=== PATIENT | female | born 1985 | race Caucasian/White ===

== ENCOUNTER 2016-08-24 05:04 | Day surgery (SDC) | payer BC ==
[2016-08-23 14:24] VITALS: BMI 26.9
[2016-08-24] MEDS ORDERED: LIDOCAINE HCL 2% (20ML MULTI-DOSE VIAL) NR ONE (13:49)
[2016-08-24] MEDS ORDERED: DEXAMETHASONE SOD PHOSPHATE 4 MG/1 ML VIAL ONE (13:49)
[2016-08-24] MEDS ORDERED: ROCURONIUM BROMIDE 50 MG/5 ML VIAL ONE (13:50)
[2016-08-24] MEDS ORDERED: PROPOFOL 20 ML ONE (13:50)
[2016-08-24] MEDS ORDERED: MIDAZOLAM HCL 2 MG/2 ML SINGLE DOSE VIAL ONE (13:50)
--- NOTE | 2016-08-24 14:20 | HP ---
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: No: Alzheimer's, CVA, Dementia, Migraine, Multiple Sclerosis, Peripheral Neuropathy, Parkinson's, Seizure, Syncope, TIA, Vertigo, Other Cardiovascular: Yes: Deep Vein Thrombosis Pulmonary: Yes: Pulmonary Embolus (on OCP) Gastrointestinal: No: Ascites, Cancer, Constipation, Crohn's Disease, Diverticulitis, Diverticulosis, Esophageal Varices, Gastritis, GERD, GI Bleed, Hemorrhoids, Hiatal Hernia, Inflamatory Bowel Disease, Irritable Bowel Disease, Pancreatitis, Peptic Ulcer Disease, Ulcerative Colitis, Other Hepatobiliary: No: Cirrhosis, Cholelithiasis, Cholecystitis, Choledocholithiasis , Hepatitis A, Hepatitis B, Hepatitis C, Other Renal/: No: Renal Failure, Renal Inusuff, BPH, Cancer, Hematuria, Hemodialysis , Neurogenic Bladder, Renal Calculi, UTI, Other Reproductive: No: Ectopic , Endometriosis, Fibroids, PID, Polycystic Ovary Syndrome, Postmenopausal, Other ...Para: 2 Heme/Onc: Yes: Other (Hx/o PE as above) Infectious Disease: No: AIDS, C-Diff, Herpes Zoster, HIV, MRSA, STD's, Tuberculosis, VREF, Other Psych: No: Addictions, Anxiety, Bipolar, Depression, Panic, Psychosis, Schizophrenia, Other Musculoskeletal: No: Bursitis, Chronic low back pain, Hemiparesis, Hemiplegia, Osteoarthritis, Paraplegia, Other Rheumatology: No: Fibromyalgia, Gout, Lupus, Rheumatoid Arthritis, Sarcoidosis, Vasculitis, Other ENT: No: Allergic Rhinitis, Sinusitis, Other Endocrine: No: Hilario's Disease, Aravind's Disease, Diabetes Insipidus, Diabetes Mellitus, Hyperparathyroidism, Hyperthyroidism, Hypothyroidism, Osteopenia, SIADH, Other - Past Surgical History Past Surgical History: Yes: None Hx Myomectomy: No Hx Transabdominal Cerclage: No Additional Surgical History: D&C - Smoking History Smoking history: Never smoked Have you smoked in the past 12 months: No Aproximately how many cigarettes per day: 0 - Alcohol/Substance Use Hx Alcohol Use: Yes (SOCIAL) History of Substance Use: reports: None - Social History Usual Living Arrangement: Yes: With Child ADL: Independent History of Recent Travel: No Home Medications - Allergies Allergies/Adverse Reactions: Allergies Allergy/AdvReac Type Severity Reaction Status Date / Time No Known Allergies Allergy Verified 08/24/16 12:54 - Home Medications Home Medications: Ambulatory Orders Valacyclovir HCl [Valtrex -] 1 tab PO DAILY 07/08/15 Family Disease History - Family Disease History Family History: Unremarkable Review of Systems - Review of Systems Constitutional: reports: No Symptoms Eyes: reports: No Symptoms HENT: reports: No Symptoms Neck: reports: No Symptoms Cardiovascular: reports: No Symptoms Respiratory: reports: No Symptoms Gastrointestinal: reports: No Symptoms Genitourinary: reports: No Symptoms Breasts: reports: No Symptoms Reported Musculoskeletal: reports: No Symptoms Integumentary: reports: No Symptoms Neurological: reports: No Symptoms Endocrine: reports: No Symptoms Hematology/Lymphatic: reports: No Symptoms Psychiatric: reports: No Symptoms Pain Intensity: 0 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 Vital Signs: Vital Signs Temperature 98.0 F 08/24/16 13:01 Pulse Rate 76 08/24/16 13:01 Respiratory Rate 16 08/24/16 13:01 Blood Pressure 120/64 08/24/16 13:01 O2 Sat by Pulse Oximetry (%) 100 08/24/16 13:01 Constitutional: Yes: Well Nourished, No Distress, Calm Eyes: Yes: WNL, Conjunctiva Clear HENT: Yes: WNL, Atraumatic, Normocephalic Neck: Yes: WNL, Supple, Trachea Midline Cardiovascular: Yes: WNL, Regular Rate and Rhythm Respiratory: Yes: WNL, Regular, CTA Bilaterally Gastrointestinal: Yes: WNL, Normal Bowel Sounds, Soft Renal/: Yes: WNL Pelvis: Yes: WNL External Genitalia: Yes: Normal Internal Exam Deferred: No Vaginal Exam: Yes: Normal Cervix: Yes: Normal Uterus: Yes: Normal Adnexa: Normal: Left, Right Musculoskeletal: Yes: WNL Extremities: Yes: WNL Edema: No Integumentary: Yes: WNL Neurological: Yes: WNL, Alert, Oriented ...Motor Strength: WNL Psychiatric: Yes: WNL, Alert, Oriented Assessment/Plan 31 yo P2 admitted for laparoscopic bilateral tubal ligation. Risk, benefits, alternatives of surgery were discussed. Pt verbalized understanding and requested to proceed.
[2016-08-24] MEDS ORDERED: BUPIVACAINE HCL/PF 0.5% (5MG/ML) 10 ML VIAL IJ ONE ×3 (15:01→15:07)
[2016-08-24] MEDS ORDERED: GLYCOPYRROLATE 0.2 MG/1 ML VIAL ONE (15:04)
[2016-08-24] MEDS ORDERED: NEOSTIGMINE METHYLSULFATE 0.5 MG/ML - 10 ML MDV ONE (15:04)
[2016-08-24] MEDS ORDERED: KETOROLAC TROMETHAMINE 30 MG/1 ML VIAL ONE (15:20)
[2016-08-24] MEDS ORDERED: ONDANSETRON 4 MG/2 ML VIAL IVPUSH PRN (15:29)
[2016-08-24] MEDS ORDERED: ACETAMINOPHEN 1000 MG/100 ML VIAL (NON FORMULARY) IVPB ONE (15:29)
[2016-08-24] MEDS ORDERED: oxyCODONE HCL 5 MG TABLET PO PRN (15:29)
[2016-08-24] MEDS ORDERED: LACTATED RINGERS SOLUTION 1,000 ML IV SCH (15:30)
[2016-08-24] MEDS ORDERED: ACETAMINOPHEN INJECTION 100 ML IVPB ONE (15:31)
[2016-08-24] MEDS ORDERED: BUPIVACAINE HCL/PF 0.5% (5MG/ML) 10 ML VIAL ONE (15:45)
--- NOTE | 2016-08-24 16:36 | OP ---
Operative Note - Note: Operative Date: 08/24/16 Pre-Operative Diagnosis: Sterilization Operation: laparoscopic BTL Findings: Normal uterus, tubes, ovaries Post-Operative Diagnosis: Same as Pre-op Surgeon: Berry Dickerson Anesthesiologist/TIMBER DEADENER: Isabel Palafox Anesthesia: General Estimated Blood Loss (mls): 3 Drains & Tubes with Location: AGUAYO CATHETER Drains, Volume Out (mls): 250 Blood Volume Replaced (mls): 0 Fluid Volume Replaced (mls): 500 Operative Report Dictated: Yes
[2016-08-24] MEDS ORDERED: IBUPROFEN 600 MG TABLET (FP) PO PRN (16:37)
[2016-08-24] MEDS ORDERED: ACETAMINOPHEN 325 MG TABLET (FP) PO PRN (16:37)
[2016-08-24 16:46] VITALS: TEMP 98.1
[2016-08-24 18:07] VITALS: BP 134/93; PULSE 65
--- NOTE | 2016-08-25 09:13 | OP ---
DATE OF OPERATION: 08/24/2016 PREOPERATIVE DIAGNOSIS: Sterilization. POSTOPERATIVE DIAGNOSIS: Sterilization. PROCEDURE: Laparoscopic bilateral tubal ligation via fulguration. SURGEON: Lloyd Hancock MD ANESTHESIOLOGIST: Isabel Palafox MD ANESTHESIA: General endotracheal. COMPLICATIONS: None. ESTIMATED BLOOD LOSS: 3 mL. INTRAVENOUS FLUIDS: Crystalloid, 500 mL. URINE OUTPUT: Clear urine, 250 mL, at the end of the procedure. FINDINGS: Examination under anesthesia revealed a small mobile anteverted uterus with no pelvic or adnexal masses. Laparoscopy revealed normal uterus, fallopian tubes, and ovaries, normal visualized portion of bowel, normal liver, stomach. There was no abdominal or pelvic pathology noted. DESCRIPTION OF PROCEDURE: The patient was met preoperatively. Risks, benefits, and alternatives of surgery were discussed in details. All questions were answered. The patient was brought to the OR with the IV running. She was placed on the surgical table in the supine position. The general anesthesia was achieved without difficulty. The patient was then placed in a dorsal lithotomy position using adjustable Gianni stirrups. The patient was examined under anesthesia with the findings as described above. The patient was then prepped and draped in the usual sterile fashion. A Tate catheter was introduced sterilely and left to drain to gravity. A HUMI uterine manipulator was introduced sterilely. The surgeon then regloved and proceeded with the laparoscopy. A 5-mm infraumbilical incision was made with the knife. A Veress needle was introduced through the umbilical incision into the peritoneal cavity. Intraperitoneal placement was confirmed. Pneumoperitoneum was then produced without complications. The Veress needle was removed, and a 5-mm Visiport trocar was inserted through the umbilical incision into the peritoneal cavity. Survey of the abdominal pelvic cavities was performed and revealed no pathology. A second 5-mm incision was made in the midline approximately 2 cm above the pubic symphysis. A second 5-mm trocar was introduced under direct visualization. Bipolar cautery was then used to grasp the right fallopian tube. The right fallopian tube was followed to the fimbriated end. The mid-portion of the right fallopian tube was cauterized without complication for length of approximately 3 cm. The left fallopian tube was then located and followed to the fimbriated end. The mid-portion of the left fallopian tube was also cauterized for a length of approximately 3 cm. Good hemostasis was noted. All instruments were removed from the patient. The incisions were closed using a 4-0 Biosyn suture. Sponge, lap, and needle counts were correct. The patient was transferred to the recovery room in stable condition and awake. LLOYD HANCOCK M.D. [id number]
--- NOTE | 2016-08-26 08:23 | PATH ---
Surgical Pathology Report Patient Name: SONIA ARMSTRONG Med. Rec. #: [id number] /Age/Gender: 1985 (Age: 31) / F Account: [id number] Location: [facility] Taken: 08/24/2016 Received: 08/25/2016 Reported: 08/26/2016 Physicians: Berry Dickerson M.D. Specimen(s) Received OLD IUD Clinical History Sterilization Final Diagnosis UNIT AIDE, UTERUS, REMOVAL: IUD (GROSS ONLY). Electronically Signed Vic Alejo M.D. Gross Description Received fresh, labeled "old IUD," is a 3 cm in length T-shaped device, consistent with an IUD. The specimen displays a string attached at one aspect. No soft tissue is present. No sections are submitted, gross only. 08/25/201608/25/2016
== END 2016-08-24 18:17 | disposition home or self-care (01) ==
LOC: JASU-SURG 05:04
PROVIDERS: ATTEND Obstetrics & Gynecology
PROC: 0U574ZZ Destruction of Bilateral Fallopian Tubes, Percutaneous Endoscopic Approach (ICD-10-PCS; principal; 2016-08-24 14:00)
DX: Z30.2 Encounter for sterilization (principal)
CPT/HCPCS: 84703; 88300-TC; 94760

== ENCOUNTER → 2017-04-07 | Day surgery (SDC) | payer BC ==
--- NOTE | 2017-04-11 08:37 | OP ---
DATE OF OPERATION: 04/07/2017 PREOPERATIVE DIAGNOSIS: Left flank mass. POSTOPERATIVE DIAGNOSIS: Left flank mass. PROCEDURE: Left ultrasound-guided core biopsy. ANESTHESIA: Local. ATTENDING SURGEON: Trayc Smiley MD ESTIMATED BLOOD LOSS: Minimal. COMPLICATIONS: None. DESCRIPTION OF PROCEDURE: Patient was made aware of the risks and benefits of the procedure and consented. Patient was placed in the supine position. Under sterile conditions, with 1% lidocaine for local anesthesia, a small skyler was made in the skin. Using a 13-gauge suction biopsy device via inferior approach under ultrasound guidance, multiple cores were obtained and submitted to Pathology. Patient tolerated the procedure well. Steri-Strips and a sterile bandage were applied. We will contact her with results. TRACY SMILEY M.D. [id number]
--- NOTE | 2017-04-11 15:31 | PATH ---
Surgical Pathology Report Patient Name: SONIA BARRERA [facility]. Rec. #: [id number] /Age/Gender: 1985 (Age: 31) / F Account: [id number] Location: Taken: 04/07/2017 Received: 04/07/2017 Reported: 04/11/2017 Physicians: Tracy Smiley M.D. Specimen(s) Received LEFT FLANK SOFT TISSUE MASS Clinical History Left flank soft tissue mass Final Diagnosis FLANK, LEFT, SOFT TISSUE MASS, CORE BIOPSY: INTRAMUSCULAR HEMANGIOMA. (SEE NOTE) Note: Immunohistochemical studies performed at [place], [place] ([id number]) show the following results: CD34 and CD31 highlight the vascular endothelium with surrounding myofibroblastic tissue showing positivity for vimentin, SMA and desmin. S100 immunostain is negative. These findings support the diagnosis. Electronically Signed Emily Barkley M.D. Gross Description Received in formalin, labeled "left flank mass" and multiple cores of brown-montanez soft tissue having an aggregate of 1.3 x 1 x 0.5 cm. Entirely submitted in one cassette.
== END | disposition home or self-care (01) ==
LOC: FRADUS-SUR 13:44
PROVIDERS: ATTEND Surgery Surgical Oncology
PROC: 0WBF3ZX Excision of Abdominal Wall, Percutaneous Approach, Diagnostic (ICD-10-PCS; principal; 2017-04-07)
PROC: BH49ZZZ Ultrasonography of Abdominal Wall (ICD-10-PCS; 2017-04-07)
DX: D18.01 Hemangioma of skin and subcutaneous tissue (principal)
CPT/HCPCS: 76942-TC; 87899; 88307-TC; A4648

== ENCOUNTER 2019-06-25 09:08 | Emergency (ER) | payer BC ==
--- NOTE | 2019-06-25 09:22 | PDOC ---
History of Present Illness <Cherelle Jaffe - Last Filed: 06/25/19 10:10> - General History Source: Patient Exam Limitations: No Limitations - History of Present Illness Initial Comments: 06/25/19 09:20 Dulce Leos is 34F with PMH 2x PE 2/2 contraceptive use who presents with 3 weeks of epigastric pain. Patient has been having a tightness/pain in her epigastric region starting 3 weeks ago, denies inciting injury. Exacerbated by eating, last night ate pasta and noticed pain. Worse pain with flexion at the hips, as well as heavy exercise. Associated with nausea, no vomiting. Pain is described as a cramping sensation that comes and goes. In the last 3 days has also had a lower back pain across her lower back that comes and goes but is temporally distinct from her epigastric pain. Reports headache in the last few days. Denies fever/chills, chest pain, SOB, urinary sx, flank pain, dizziness, weakness, C/D. LMP a few days ago, but has history of irregular periods and has period again. Tubal ligation in 2016, last childbirth 2016. On hormone contraception in 2016, had 2x PE, was on Lovenox for 6 months. Denies smoking, drug use, drinks beer on the weekends but has symptoms during the week. Takes no medications at this time. 50lb weight gain in the last 2 years. 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 <Adair Mccann - Last Filed: 06/25/19 10:51> - General Chief Complaint: Pain Stated Complaint: EPIGASTRIC/BACK PAIN X3 WEEKS Time Seen by Provider: 06/25/19 09:12 Past History <Cherelle Jaffe - Last Filed: 06/25/19 10:10> - Past Medical History Anemia: No Asthma: No Cancer: No Cardiac Disorders: No CVA: No COPD: No CHF: No Dementia: No Diabetes: No GI Disorders: No Disorders: No HTN: No Hypercholesterolemia: No Liver Disease: No Seizures: No Thyroid Disease: No - Immunization History Immunization Up to Date: Yes - Psycho Social/Smoking Cessation Hx Smoking Status: No Smoking History: Never smoked Have you smoked in the past 12 months: No Number of Cigarettes Smoked Daily: 0 Information on smoking cessation initiated: No Hx Alcohol Use: No Drug/Substance Use Hx: No Substance Use Type: None Hx Substance Use Treatment: No <Adair Mccann - Last Filed: 06/25/19 10:51> - Past Medical History Allergies/Adverse Reactions: Allergies Allergy/AdvReac Type Severity Reaction Status Date / Time No Known Allergies Allergy Verified 06/25/19 09:10 Home Medications: Ambulatory Orders NK [No Known Home Medication] 06/25/19 Review of Systems - Review of Systems Able to Perform ROS?: Yes Constitutional: No: Chills, Fever HEENTM: No: Symptoms Reported Respiratory: Yes: Cough. No: Shortness of Breath, Stridor, Wheezing Cardiac (ROS): No: Chest Pain, Irregular Heart Rate, Lightheadedness, Palpitations, Syncope ABD/GI: No: Constipated, Diarrhea, Nausea, Poor Appetite, Poor Fluid Intake, Vomiting : No: Burning, Dysuria, Discharge, Frequency, Flank Pain, Hematuria, Pain Musculoskeletal: Yes: Back Pain. No: Joint Swelling, Muscle Pain, Muscle Weakness Integumentary: No: Symptoms Reported Neurological: Yes: Headache Endocrine: No: Symptoms Reported Hematologic/Lymphatic: No: Symptoms Reported All Other Systems: Reviewed and Negative <KitdesireeAdair - Last Filed: 06/25/19 10:51> *Physical Exam - Vital Signs Last Vital Signs Temp Pulse Resp BP Pulse Ox 99.5 F 88 20 119/65 100 06/25/19 09:09 06/25/19 09:09 06/25/19 09:09 06/25/19 09:09 06/25/19 09:09 <Cherelle Jaffe - Last Filed: 06/25/19 10:10> - Vital Signs Last Vital Signs Temp Pulse Resp BP Pulse Ox 99.5 F 88 20 119/65 100 06/25/19 09:09 06/25/19 09:09 06/25/19 09:09 06/25/19 09:09 06/25/19 09:09 - Physical Exam General Appearance: Yes: Nourished, Appropriately Dressed. No: Apparent Distress HEENT: positive: EOMI, HEMA, Normal Voice, Symmetrical, Pharynx Normal, Hearing Grossly Normal. negative: Scleral Icterus (R), Scleral Icterus (L), Pharyngeal Erythema, Tonsillar Exudate, Tonsillar Erythema Neck: positive: Normal Thyroid, Supple. negative: Tender, Rigid, Lymphadenopathy (R), Lymphadenopathy (L) Respiratory/Chest: positive: Lungs Clear. negative: Chest Tender, Normal Breath Sounds, Respiratory Distress, Crackles, Rales, Rhonchi, Stridor, Wheezing Cardiovascular: positive: Regular Rhythm, Regular Rate Gastrointestinal/Abdominal: positive: Normal Bowel Sounds, Flat, Soft. negative : Tender (negative suggs sign), Organomegaly, Pulsatile Mass, Guarding, Rebound Musculoskeletal: positive: Normal Inspection. negative: CVA Tenderness, Decreased Range of Motion, Vertebral Tenderness Extremity: positive: Normal Capillary Refill, Normal Inspection, Normal Range of Motion. negative: Tender Integumentary: positive: Normal Color, Dry, Warm Neurologic: positive: Fully Oriented, Alert, Normal Mood/Affect, Normal Response <Adair Mccann - Last Filed: 06/25/19 10:51> Procedures - Bedside Ultrasound Bedside Ultrasound: Gallbladder Remarks: 06/25/19 10:11 POCUS biliary exam: Indication: abdominal pain Views: gallbladder long and s hort axis, CBD Findings: no stones or GB wall thickening or pericholecystic fluid, AGBW 0.17cm , normal CBD <3mm for age. Neg sono murphys Impression: no acute findings. No cholelithiasis or cholecystitis. <Cherelle Jaffe - Last Filed: 06/25/19 10:10> ED Treatment Course - LABORATORY CBC & Chemistry Diagram: 06/25/19 10:00 06/25/19 10:00 <Adair Mccann - Last Filed: 06/25/19 10:51> Medical Decision Making - Medical Decision Making 06/25/19 09:20 Dulce Leos is 34F with PMH 2x PE 2/2 contraceptive use who presents with 3 weeks of epigastric pain. Presentation is consistent with pancreatitis, more likely 2/2 gallstones than alcohol or medications, as well as gastritis, gastric ulcers, GERD. Initial concern for AAA, unlikely given VS, non-associated back pain, but will evaluate. Most likely MSK etiology. CMP CBC Lipase Amylase UA/UC CXR ECG Bedside US of the GB reveals grossly normal BG, no evidence of cholecystitis or stones. CXR appears grossly normal. Labs notable for: - UA normal - Urine negative - CBC normal - CMP normal - Lipase machine unavailable, low concern for pancreatitis at this time given no GB pathology Symptoms likely related to GERD vs. MSK etiology, safe to be discharged home with GI follow-up. <Adair Mccann - Last Filed: 06/25/19 10:51> Discharge <Cherelle Jaffe - Last Filed: 06/25/19 10:10> - Discharge Information Problems reviewed: Yes - Admission No <Adair Mccann - Last Filed: 06/25/19 10:51> - Discharge Information Clinical Impression/Diagnosis: Epigastric pain Lower back pain Qualifiers: Chronicity: acute Back pain laterality: bilateral Sciatica presence: without sciatica Qualified Code(s): M54.5 - Low back pain - Follow up/Referral Referrals: Louise Maier MD [Staff Physician] - Cristobal Cam MD [Staff Physician] - - Patient Discharge Instructions Patient Printed Discharge Instructions: DI for Epigastric Pain Additional Instructions: Today you were evaluated for abdominal pain. Your blood labs do not show evidence of heart disease, liver disease, infection, electrolyte problems, or anemia. Your ECG is normal. Your chest x-ray is normal. Your urine tests do not who evidence of infection. Your ultrasound test shows your gallbladder is normal. We have evaluated you for the most serious causes of your pain, but have not found any evidence of a severe disease. Your pain is likely either caused by reflux or is a puled muscle. At home, feel free to try taking omeprazole or Pepcid as needed for your symptoms, and avoid fatty foods or eating late at night. Please follow-up with your primary doctor in the next 3 days for further care. We have provided a referral to a 911 emergency dispatcher for further evaluation of your symptoms. If you experience worsening abdominal pain, nausea, vomiting, chest pain, trouble breathing, or any other new or concerning symptoms, please return to the emergency room.
[2019-06-25 09:26] VITALS: BP 119/65; PULSE 88; TEMP 99.5; BMI 34.3
--- NOTE | 2019-06-25 09:55 | PDOC ---
Attending Attestation - Resident Resident Name: Adair Mccann - ED Attending Attestation I have performed the following: I have examined & evaluated the patient, The case was reviewed & discussed with the resident, I agree w/resident's findings & plan - HPI HPI: 06/25/19 09:53 34-year-old female with history of laparoscopic bilateral tubal ligation, provoked PE (while on OCP) , GERD, Presenting with intermittent epigastric pain x 3 weeks, described as nonradiating, crampy feeling. started approx 3 weeks ago, after exercise and performing situps that caused her to have abdominal soreness x 5 days, but also present prior to exertional activity. exacerbated with movement, bending forward and now food. last night had pasta sauce with tomatoes that exacerbated her epigastric discomfort. Last 3 days, a/w crampy lower back pain, not radiating, worse with movement. +nausea x 3 days +headache. No f/c, cp, sob, v/d/urinary sx, neuro changes, bowel or bladder changes No NSAID use, alcohol on weekends, occasional and social. No drug use. Irregular periods, currently on menses, usually lasts up to 2 weeks. 06/25/19 10:17 - Physicial Exam PE: 06/25/19 09:53 Agree with the resident's HPI and PE as documented in the electronic medical record. NAD, well appearing, EOMI, PERRL, nl conjunctiva, anicteric; neck supple. lungs clear, RRR, abdomen soft nontender. no rebound, guarding. no CVAT. Back with mild thoracic back TTP. HARPER x4, no focal neuro deficits. No peripheral edema. normal color for ethnicity, WWP. no calf tenderness 06/25/19 10:16 - Medical Decision Making 06/25/19 09:55 Vital Signs Temp Pulse Resp BP Pulse Ox 99.5 F 88 20 119/65 100 06/25/19 09:09 06/25/19 09:09 06/25/19 09:09 06/25/19 09:09 06/25/19 09:09 Differential diagnosis includes MSK strain, rectus abdominis strain, PUD, gastric ulcer, gastritis, pancreatitis, hepatitis, lower back strain, UTI/ Pyelo. Patient without urinary symptoms. Abdomen is soft and nontender, no peritoneal findings. No Grimes sign or McBurney's point tenderness. Patient has had 3 weeks of the symptoms that initially was soreness from doing sit ups. That has since improved now with symptoms exacerbated by certain foods, last night had tomato-based pasta sauce is likely trigger. No chest pain or shortness of breath. No systemic features or symptoms so doubt intra-abdominal infection. Chest x-ray is clear, normal mediastinum and sharp angles, no evidence of free air or abdominal distention. Bedside [id number] ultrasound gallbladder unremarkable, no stones, no pericholecystic fluid. Negative Grimes signs. Gallbladder wall diameter 0.17 cm, CBD is also less than 0.4 cm for age so no gallstones or evidence of cholecystitis/choledocholithiasis. Laboratory results are within normal limits include the amylase and LFTs. Lipase is pending but has been unavailable due to lack of reagent. But with normal gallbladder study and normal lipase and LFTs unlikely to be obstructed biliary stone, pancreatitis at this time. hCG is negative, UA is also negative for any infections ketones or blood. Unlikely kidney stone. Patient is asymptomatic here abdomen is soft nontender, no peritoneal findings and no focal tenderness on examination. Patient instructed to consider continue with supportive care, dietary modifications, primary care follow-up and GI as needed for her symptoms 06/25/19 10:15 06/25/19 10:32 Heart Score/ECG Review #1 ECG reviewed & interpreted by me at: 10:20 General ECG Interpretation: Sinus Rhythm, Normal Rate, Normal Intervals 06/25/19 10:42 nsr 71 bpm
[2019-06-25 10:21] LABS: BASO % 0.4 % (0-2.0); EOS % 0.5 % (0-4.5); HEMATOCRIT 39.9 % (32.4-45.2); HEMOGLOBIN 13.3 GM/dl (10.7-15.3); LYMPH % 17.6 % (8-40); MCH 29.5 pg (25.7-33.7); MCHC 33.3 g/dl (32.0-36.0); MEAN CELL VOLUME 88.5 fl (80-96); MEAN PLT VOLUME 8.7 fl (7.5-11.1); MONO % 3.8 % (3.8-10.2); NEUT % 77.7 % (42.8-82.8); PLATELET COUNT 238 K/MM3 (134-434); RBC 4.51 M/mm3 (3.60-5.2); RDW 12.6 % (11.6-15.6); WHITE BLOOD COUNT 6.5 K/mm3 (4.0-10.8)
[2019-06-25 10:28] LABS: ALBUMIN 4.1 g/dl (3.4-5.0); BILIRUBIN,TOTAL 0.7 mg/dl (0.2-1); CALCIUM 8.9 mg/dl (8.5-10); CREATININE 0.6 mg/dl (0.55-1.3); POTASSIUM 4.2 mmol/L (3.5-5.1); TOT PROT 7.1 g/dl (6.4-8.2)
--- NOTE | 2019-06-25 11:25 | EKG ---
Test Reason : Blood Pressure : / mmHG Vent. Rate : 071 BPM Atrial Rate : 071 BPM P-R Int : 162 ms QRS Dur : 082 ms QT Int : 380 ms P-R-T Axes : 052 045 029 degrees QTc Int : 412 ms NORMAL SINUS RHYTHM NORMAL ECG Confirmed by MD BILL, AYAH ([id number]) on 06/25/2019 11:24:52 AM Referred By: OCTAVIA FALK Confirmed By:AYAH KHAN MD
== END 2019-06-25 11:00 | disposition home or self-care (01) ==
LOC: FER 09:08
DX: M54.5 Low back pain (principal); R10.13 Epigastric pain
CPT/HCPCS: 36415; 71046-TC-FY; 80053; 81003; 81015; 82150; 83690; 84703; 85025; 87086; 93005; 99283-25

== ENCOUNTER 2019-08-06 06:34 | Day surgery (SDC) | payer BC ==
[2019-07-23 11:57] VITALS: BMI 33.3
--- NOTE | 2019-07-29 11:03 | HP ---
Admitting History and Physical - Primary Care Physician PCP: Tracy Smiley - Admission Chief Complaint: Left flank soft tissue mass History of Present Illness: 31 year old female who noted some discomfort in her left flank associated with a nodule. left flank US shows the lesion is less prominent but still requesting it be removed. 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 Chest MRI 02/26/2019 showed 3.6x2.2x1 cm left axillary/terres minor muscle/ flank region benign in appearance compatible with hemangioma. History Source: Patient Limitations to Obtaining History: No Limitations - Past Medical History Cardiovascular: Yes: Deep Vein Thrombosis Pulmonary: Yes: Pulmonary Embolus ( PE related to BCP 2013 was on coumadin for 6 mos) Gastrointestinal: Yes: GERD ...LMP: 07/18/19 ...: No Heme/Onc: Yes: Other (Hx/o PE as above) - Past Surgical History Past Surgical History: Yes: None - Smoking History Smoking history: Never smoked Have you smoked in the past 12 months: No Aproximately how many cigarettes per day: 0 - Alcohol/Substance Use Hx Alcohol Use: Yes (MAYBE WEEKENDS) History of Substance Use: reports: None - Social History ADL: Independent History of Recent Travel: No Home Medications - Allergies Allergies/Adverse Reactions: Allergies Allergy/AdvReac Type Severity Reaction Status Date / Time No Known Allergies Allergy Verified 06/25/19 09:10 - Home Medications Home Medications: Ambulatory Orders Omeprazole 20 mg PO DAILY PRN 07/23/19 Family Medical History Family Hx Cancer: Father (prostate ca) Physical Examination Constitutional: Yes: Well Nourished Gastrointestinal: Yes: Other (Left flank/lower axillary region 2.5 cm smooth mobile nodule less prominet) Problem List - Problems (1) Mass of soft tissue Problems reviewed: Yes Code(s): M79.89 - OTHER SPECIFIED SOFT TISSUE DISORDERS Assessment/Plan excision of left flank/lower axilla soft tissue mass
[2019-08-06] MEDS ORDERED: LIDOCAINE HCL 1%, 10 MG/ML (20ML VIAL) ONE (07:12)
[2019-08-06] MEDS ORDERED: MIDAZOLAM HCL 2 MG/2 ML SINGLE DOSE VIAL ONE (08:20)
[2019-08-06] MEDS ORDERED: ONDANSETRON 4 MG/2 ML VIAL ONE (08:29)
[2019-08-06] MEDS ORDERED: DEXAMETHASONE SOD PHOSPHATE 4 MG/1 ML VIAL ONE (08:29)
[2019-08-06] MEDS ORDERED: KETOROLAC TROMETHAMINE 30 MG/1 ML VIAL ONE (08:29)
[2019-08-06] MEDS ORDERED: LIDOCAINE HCL/PF 2% SDV 5ML VIAL ONE (08:29)
[2019-08-06] MEDS ORDERED: PROPOFOL 20 ML ONE ×3 (08:30)
[2019-08-06] MEDS ORDERED: KETOROLAC TROMETHAMINE 30 MG/1 ML VIAL IVPUSH PRN (08:44)
[2019-08-06] MEDS ORDERED: ONDANSETRON 4 MG/2 ML VIAL IVPUSH PRN ×2 (08:44→10:01)
[2019-08-06] MEDS ORDERED: DEXTROSE 5%-0.45% SALINE 1,000 ML IV SCH (08:45)
[2019-08-06] MEDS ORDERED: SUCCINYLCHOLINE CHLORIDE 200 MG/10 ML SYRINGE ONE (08:46)
[2019-08-06] MEDS ORDERED: BUPIVACAINE HCL/PF 2.5 MG/ML - 30 ML VIAL IJ ONE (09:29)
[2019-08-06] MEDS ORDERED: GUM MASTIC/STORAX/MSAL/ALCOHOL 1 DRP DROPSBTL MC ONE (09:38)
[2019-08-06] MEDS ORDERED: BUPIVACAINE HCL/PF 0.25% (2.5MG/ML) 10 ML VIAL IJ ONE (09:40)
[2019-08-06] MEDS ORDERED: oxyCODONE HCL 5 MG TABLET PO PRN ×2 (10:01)
[2019-08-06] MEDS ORDERED: LACTATED RINGERS SOLUTION 1,000 ML IV SCH (10:15)
[2019-08-06 10:55] VITALS: PULSE 68; TEMP 98
[2019-08-06 11:46] VITALS: BP 116/64
--- NOTE | 2019-08-06 14:01 | OP ---
DATE OF OPERATION: 08/06/2019 PREOPERATIVE DIAGNOSIS: Left flank soft tissue intramuscular hemangioma. POSTOPERATIVE DIAGNOSIS: Left flank soft tissue intramuscular hemangioma. PROCEDURE: Left flank wide excision of soft tissue mass. ANESTHESIA: General intubated. ATTENDING SURGEON: Carlita Smiley MD LOGISTICS MANAGER: ADAM Leggett ESTIMATED BLOOD LOSS: Minimal. COMPLICATIONS: None. DESCRIPTION OF PROCEDURE: Patient was made aware of the risks and benefits of the procedure and consented. She was placed in a supine position. After general anesthesia was induced, the patient was placed in the right lateral decubitus position, and the operative site was prepped and draped in the usual sterile fashion. A transverse incision was made over the mass, which had been identified preoperatively by ultrasound. Using electrocautery, the tissues were dissected down to the muscular fascia where an obvious mass was identified. This was widely excised with approximately 1-cm margins and coming off the deep tissue was noted to be entwined with some of the latissimus dorsi then a small patch of muscle was taken with the specimen. The specimen was then submitted with a short suture superior, long suture posterior. The wound was copiously irrigated with normal saline. Hemostasis maintained by electrocautery. The deep subcutaneous tissue was closed with interrupted 2-0 Vicryl. The skin was closed with subdermal interrupted 3-0 Vicryl, and the skin was closed with a 4-0 Monocryl. Steri-Strips and sterile dressing were applied. Before closure, the patient underwent injection with 0.25% bupivacaine for local anesthesia. The patient was then extubated in position and went to recovery room. CARLITA SMILEY M.D. [id number]
--- NOTE | 2019-08-09 12:17 | PATH ---
Surgical Pathology Report Patient Name: SONIA BARRREA [facility]. Rec. #: [id number] /Age/Gender: 1985 (Age: 34) / F Account: [id number] Location: [facility] Taken: 08/06/2019 Received: 08/06/2019 Reported: 08/09/2019 Physicians: Tracy Smiley M.D. Specimen(s) Received LEFT FLANK MASS Clinical History Left flank mass, prior biopsy hemangioma Final Diagnosis Flank, left, mass, excision: Intramuscular hemangioma. Comment: See also prior left flank core biopsy ([id number]; 04/08/17). Electronically Signed Emily Barkley M.D. Gross Description Received in formalin labeled "left flank mass," is a 4.0 x 3.9 x 1.8 cm irregular portion of fibroadipose tissue with a short suture marking the superior aspect and a long suture marking the posterior aspect of the specimen, per the surgeon. There is no skin present. The specimen is inked as follows: Superior blue; inferior green; anterior and lateral red; medial yellow; deep black. The specimen is serially sectioned from anterior to deep. Sectioning reveals a 3.8 x 1.4 x 0.7 cm hemorrhagic lesion. The lesion is 0.1 cm from the anterior and deep margins. The lesion is focally 0.2 cm from the lateral margin and 0.6 cm from the medial margin. The remaining margins appear clear of the lesion. Alteration Tailor Apprentice sections including the entire lesion are submitted in 10 cassettes as follows: 1-lesion with anterior margin; 5-1-ggtiuvta and sequentially submitted lesion from anterior to deep (each with lateral, medial and inferior margins); 9-lesion with deep margin; 10-superior margin. DL/08/07/2019 saudi/08/07/2019
== END 2019-08-06 11:30 | disposition home or self-care (01) ==
LOC: FASU 06:34
PROVIDERS: ATTEND Surgery Surgical Oncology
PROC: 0KBL0ZZ Excision of Left Abdomen Muscle, Open Approach (ICD-10-PCS; principal; 2019-08-06 09:15)
DX: D18.09 Hemangioma of other sites (principal)
CPT/HCPCS: 84703; 88307-TC; 94760

== ENCOUNTER 2020-11-09 08:49 | Emergency (ER) | payer BC ==
[2020-11-09 09:12] VITALS: BP 122/73; PULSE 80; TEMP 98.3; BMI 31.6
== END 2020-11-09 09:28 | disposition home or self-care (01) ==
LOC: FER 08:49
DX: J01.10 Acute frontal sinusitis, unspecified (principal)
CPT/HCPCS: 87880; 99283-25

== ENCOUNTER 2023-10-27 08:01 | Emergency (ER) | payer BC ==
[2023-10-27 08:42] VITALS: BP 138/74; PULSE 80; RESP 18; TEMP 99.8; BMI 27.1
[2023-10-27 08:57] LABS: HCG,QUALITATIVE URINE Positive
[2023-10-27] MEDS ORDERED: ACETAMINOPHEN 325 MG TABLET (FP) ONE (09:03)
[2023-10-27] MEDS: ACETAMINOPHEN 325 MG TABLET (FP) PO ONE (09:07)
[2023-10-27 09:39] LABS: HEMATOCRIT 39.5 % (32.4-45.2); HEMOGLOBIN 12.9 G/dL (10.7-15.3); MCHC 32.6 g/dl (32.0-36.0); MEAN PLT VOLUME 8.5 fl (7.5-11.1); PLATELET COUNT 221.1 10^3/uL (134-434); RBC 4.44 10^6/uL (3.60-5.2); WHITE BLOOD COUNT 7.2 10^3/uL (4.0-10.8)
[2023-10-27 09:44] LABS: ALBUMIN 4.8 g/dl (3.4-5.0); BILIRUBIN,TOTAL 0.4 mg/dl (0.2-1); CALCIUM 10.1 mg/dl (8.5-10.1); CREATININE 0.7 mg/dl (0.6-1.3); POTASSIUM 4.1 mmol/L (3.5-5.1); TOT PROT 7.7 g/dl (6.4-8.2)
[2023-10-27 10:20] LABS: PLATELET ESTIMATE ADEQUATE
[2023-10-27] MEDS: METHOTREXATE SODIUM/PF 25 MG/ML VIAL IM ONE (13:02)
== END 2023-10-27 13:30 | disposition home or self-care (01) ==
LOC: FER 08:01
PROC: 3E023GC Introduction of Other Therapeutic Substance into Muscle, Percutaneous Approach (ICD-10-PCS; principal; 2023-10-27)
DX: O00.201 Right ovarian pregnancy without intrauterine pregnancy (principal)
CPT/HCPCS: 36415; 76801-TC; 80053; 81003; 81015; 84702; 84703; 85027; 86850; 86900; 86901; 87086; 99284-25; J9260

== ENCOUNTER 2024-01-08 04:29 | Day surgery (SDC) | payer BC ==
[2024-01-03 12:16] VITALS: BMI 32.4
[2024-01-08] MEDS ORDERED: BUPIVACAINE HCL/PF 0.5% (5MG/ML) 10 ML VIAL ONE (09:54)
[2024-01-08] MEDS ORDERED: MIDAZOLAM HCL 2 MG/2 ML SINGLE DOSE VIAL ONE (10:32)
[2024-01-08] MEDS ORDERED: FENTANYL CITRATE/PF 50 MCG/ML VIAL ONE ×3 (10:32→12:50)
[2024-01-08] MEDS ORDERED: ROCURONIUM BROMIDE 50 MG/5 ML SYRINGE ONE (10:33)
[2024-01-08] MEDS ORDERED: ONDANSETRON 4 MG/2 ML VIAL ONE (10:35)
[2024-01-08] MEDS ORDERED: KETOROLAC TROMETHAMINE 30 MG/1 ML VIAL ONE (10:35)
[2024-01-08] MEDS ORDERED: ceFAZolin SODIUM 1 GM VIAL ONE (10:35)
[2024-01-08] MEDS ORDERED: DEXAMETHASONE SOD PHOSPHATE 4 MG/1 ML VIAL ONE (10:35)
[2024-01-08] MEDS: BUPIVACAINE HCL/PF 0.5% (5 MG/ML) 30 ML VIAL IJ ONE (11:17)
[2024-01-08] MEDS ORDERED: PROPOFOL 20 ML ONE (12:08)
[2024-01-08] MEDS ORDERED: oxyCODONE HCL 5 MG TABLET PO PRN (12:26)
[2024-01-08] MEDS: LACTATED RINGERS SOLUTION 1,000 ML IV SCH (13:09)
[2024-01-08 13:41] VITALS: RESP 16; TEMP 97.6
[2024-01-08 15:36] VITALS: BP 118/66; PULSE 66
== END 2024-01-08 15:38 | disposition home or self-care (01) ==
LOC: JASU-SURG 04:29
PROVIDERS: ATTEND Obstetrics & Gynecology
PROC: 0UT74ZZ Resection of Bilateral Fallopian Tubes, Percutaneous Endoscopic Approach (ICD-10-PCS; principal; 2024-01-08 10:00)
DX: R19.09 Other intra-abdominal and pelvic swelling, mass and lump (principal)
CPT/HCPCS: 81025; 88304-TC; 88305-TC; 94760